=== PATIENT | female | born 1955 ===

== ENCOUNTER 2017-04-03 13:20 | Emergency (ER) | payer BC ==
[~2017-04-03] VITALS: Ht 157.5 cm; Wt 97.1 kg
[~2017-04-03 13:20] MED LIST: ALPRAZOLAM PO; BLOOD PRESSURE MED; HCTZ PO; WELLBUTRIN PO
[2017-04-03] MEDS ORDERED: NORVASC (13:32)
== END 2017-04-03 14:32 | disposition home or self-care (01) ==
LOC: SED 13:20
DX: L03.115 Cellulitis of right lower limb (principal); I13.10 Hypertensive heart and chronic kidney disease without heart failure, with stage 1 through stage 4 chronic kidney disease, or unspecified chronic kidney disease; N18.9 Chronic kidney disease, unspecified; J45.909 Unspecified asthma, uncomplicated; F17.210 Nicotine dependence, cigarettes, uncomplicated; Z79.899 Other long term (current) drug therapy; Z23 Encounter for immunization
CPT/HCPCS: 90471; 90715; 99283